=== PATIENT | female | born 1950 | race Caucasian/White ===

== ENCOUNTER → 2019-05-22 10:38 | Outpatient (CLI) | payer MEDICARE, SELFPAY ==
--- NOTE | 2019-05-22 11:32 | DI.RAD.S_ITS ---
PROCEDURE: XR KNEE LT 3V INDICATIONS: knee pain TECHNIQUE: 3 views of the knee were acquired. COMPARISON: None. FINDINGS: Bones: No fractures or dislocations. No suspicious bony lesions. There is [id number] tricompartmental knee joint degeneration. Soft tissues: Trace joint effusion. No suspicious soft tissue calcifications. IMPRESSION: Mild/moderate degenerative joint disease. Dictated by: Surya Talavera M.D. on 05/22/2019 at 13:05 Approved by: Surya Talavera M.D. on 05/22/2019 at 13:06
== END ==
PROVIDERS: PCP Hospitalist; Visit Provider Hospitalist
DX: M25.562 Pain in left knee (principal); M17.12 Unilateral primary osteoarthritis, left knee
CPT/HCPCS: 73562

== ENCOUNTER → 2019-06-23 08:07 | Outpatient (CLI) | payer MEDICARE, SELFPAY ==
[2019-06-23 09:12] LABS: Add Manual Diff / Slide Review NO; Basophils Absolute Auto 0 /uL (0-100); Basophils Percent Auto 0.4 % (0-2); Eosinophils Absolute Auto 100 /uL (0-450); Eosinophils Percent Auto 0.7 % (2-4); Hematocrit 41.5 % (36-46); Hemoglobin 13.7 g/dL (12.0-16.0); Lymphocytes Absolute Auto 2500 /uL (1100-4500); Lymphocytes Percent Auto 22.7 % (25-40); Mean Corpuscular HGB Conc 33.2 % (30-36); Mean Corpuscular Hemoglobin 30.4 PG (26-34); Mean Corpuscular Volume 91.8 fL (80-100); Monocytes Absolute Auto 600 /uL (0-900); Monocytes Percent Auto 5.2 % (3-14); Neutrophils Absolute Auto 7800 /uL (1500-7000); Platelet Count 230 X10^3/uL (150-400); Red Blood Cell Count 4.52 X10^6/uL (4.0-5.2); Red Cell Distribution Width 15.2 % (11.6-14.8)
[2019-06-23 09:31] LABS: Alanine Aminotransferase 21 IU/L (<35); Albumin 4.7 g/dL (3.5-5.0); Albumin Globulin Ratio 1.4 (1.0-2.8); Alkaline Phosphatase 85 U/L (38-126); Aspartate Aminotransferase 20 IU/L (14-36); BUN Creatinine Ratio 14.2 (6-22); Bilirubin Total 0.5 mg/dL (0.2-1.3); Blood Urea Nitrogen 17 mg/dL (7-17); Calcium 9.9 mg/dL (8.4-10.2); Carbon Dioxide 27 mmol/L (22-32); Chloride 104 mmol/L (98-107); Cholesterol 241 mg/dL (140-199); Estimated Glomerular Filt Rate 44.5 mL/min (>60); Globulin 3.4 g/dL (1.7-4.1); Glucose 111 mg/dL (80-110); HDL Cholesterol 54 mg/dL (40-60); HEMOLYSIS < 15 (0-50); LDL Cholesterol Calculated 156 mg/dL (<100); Potassium 4.4 mmol/L (3.4-5.1); Sodium 142 mmol/L (137-145); Total Protein 8.1 g/dL (6.3-8.2); Triglycerides 155 mg/dL (35-150)
[2019-06-23 09:58] LABS: Thyroid Stimulating Hormone 3.01 uIU/mL (0.47-4.68)
== END ==
PROVIDERS: PCP Family Medicine; Visit Provider Hospitalist
DX: E03.9 Hypothyroidism, unspecified (principal); Z87.39 Personal history of other diseases of the musculoskeletal system and connective tissue
CPT/HCPCS: 36415; 80053; 80061; 84443; 85025

== ENCOUNTER → 2019-06-26 17:52 | Outpatient (CLI) | payer MEDICARE, SELFPAY ==
--- NOTE | 2019-06-26 17:54 | DI.MRI.S_ITS ---
PROCEDURE: MR KNEE LT WO CON INDICATIONS: severe left knee pain TECHNIQUE: Noncontrast sagittal PD fast spin echo and T2 fast spin echo with fat saturation, sagittal 3-D FLASH with fat saturation; coronal T1 spin echo and PD fast spin echo with fat saturation, and axial PD fast spin echo with fat saturation through the knee. COMPARISON: None. FINDINGS: Image quality: Excellent. Menisci: The medial and lateral menisci demonstrate normal morphology and internal signal. The meniscal root ligaments appear intact. Cruciate ligaments: The anterior and posterior cruciate ligaments appear intact. Medial structures: The medial collateral ligament appears intact. The posterior oblique ligament, semimembranosus tendon insertions, oblique popliteal ligament, and meniscocapsular junction appear intact. Visualized portions of the pes anserinus tendons appear normal. No abnormal bursal fluid. Lateral structures: The lateral collateral ligament, long and short heads of the biceps femoris tendon appear intact. The popliteus tendon appears normal; the popliteofibular ligament appears intact. The posterosuperior and anteroinferior popliteomeniscal fascicles appear intact. The arcuate and fabellofibular ligaments appear intact, on either side of the lateral inferior geniculate artery. Iliotibial band appears normal. Anterior structures: The quadriceps and patellar tendons appear intact. Patellar alignment is normal. No femoral trochlear dysplasia or ventral trochlear prominence. No edema in the infrapatellar fat pad. Bones and cartilage: No bone marrow contusions or fractures. Low-grade tricompartmental osteoarthritis is seen more prominent in lateral femoral tibial compartment. 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 Joint space: There is small amount of joint fluid, no gross intra-articular loose body. A popliteal cyst is seen measures 1.3 x 2 x 2.9 cm in size. Normal appearing synovial plicae are incidentally noted. IMPRESSION: 1. No evidence of focal meniscal tear. Cruciate ligaments are intact. 2. Low-grade tricompartmental osteoarthritis with joint space narrowing more prominent in the lateral femoral tibial compartment. 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 Small amount of joint fluid and small popliteal cyst. 3. No fracture or dislocation. No gross marrow edema. Dictated by: Alberto Law M.D. on 06/27/2019 at 8:53 Approved by: Alberto Law M.D. on 06/27/2019 at 9:02
== END ==
PROVIDERS: PCP Family Medicine; Visit Provider Family Medicine
DX: M25.562 Pain in left knee (principal); M17.12 Unilateral primary osteoarthritis, left knee; M94.262 Chondromalacia, left knee; M71.22 Synovial cyst of popliteal space [Baker], left knee
CPT/HCPCS: 73721

== ENCOUNTER → 2019-07-24 11:45 | Outpatient (CLI) | payer MEDICARE, SELFPAY ==
--- NOTE | 2019-07-24 11:48 | DI.MG.S_ITS ---
BILATERAL DIGITAL SCREENING MAMMOGRAM 3D/2D WITH CAD: 07/24/2019 CLINICAL: Routine screening. Comparison is made to exams dated: 06/09/2015 mammogram, 12/12/2012 mammogram, and 01/03/2007 mammogram - [facility]. There are scattered fibroglandular elements in both breasts. Current study was also evaluated with a Computer Aided Detection (CAD) system. There is a round focal asymmetry in the left breast at 12 o'clock middle depth. No other significant masses, calcifications, or other findings are seen in either breast. IMPRESSION: INCOMPLETE: NEEDS ADDITIONAL IMAGING EVALUATION The round focal asymmetry in the left breast most likely is a cyst and is indeterminate. Additional views with possible ultrasound are recommended. This exam was interpreted at Station ID: [id number]. NOTE: For mammograms, a report in lay terms will be sent to the patient. Approximately 15% of breast malignancies will not be visualized mammographically. In the management of a palpable breast mass, a negative mammogram must not discourage biopsy of a clinically suspicious lesion. Electronically Signed By: Alondra jasso/duarte:07/25/2019 14:17:16 letter sent: Additional Imaging Needed ACR BI-RADS Category 0: Incomplete 3340F
== END ==
PROVIDERS: PCP Family Medicine; Visit Provider Family Medicine
DX: Z12.31 Encounter for screening mammogram for malignant neoplasm of breast (principal)
CPT/HCPCS: 77063; 77067

== ENCOUNTER → 2019-08-12 14:36 | Outpatient (CLI) | payer MEDICARE, SELFPAY ==
--- NOTE | 2019-08-12 14:39 | DI.US.S_ITS ---
ULTRASOUND OF LEFT BREAST AND AXILLA: 08/12/2019 CLINICAL: Abn mammo. Comparison is made to exams dated: 08/12/2019 mammogram, 07/24/2019 mammogram, 06/09/2015 mammogram, 12/12/2012 mammogram, 01/03/2007 mammogram, and 01/02/2006 mammogram - [facility]. Color flow and real-time ultrasound of the left breast axilla were performed. Argueta scale images of the real-time examination were reviewed. There is a 0.4 cm x 0.4 cm x 0.3 cm oval mass with a circumscribed margin in the left breast at 1 o'clock middle depth. This oval mass is hypoechoic. This correlates with mammography findings. Color flow imaging demonstrates that there is no vascularity present. No significant abnormalities were seen sonographically in the left axilla. IMPRESSION: SUSPICIOUS OF MALIGNANCY The 0.4 cm x 0.4 cm x 0.3 cm oval solid mass in the left breast is at a low suspicion for malignancy. An ultrasound guided biopsy is recommended. Findings and biopsy recommendations were discussed with the patient by Dr. Solomon during today's visit. This exam was interpreted at Station ID: [id number]. Electronically Signed By: Boris Garcia M.D. aty/:08/12/2019 16:21:25 letter sent: Biopsy Required Ultrasound BI-RADS: 4a Low suspicion for malignancy
--- NOTE | 2019-08-12 14:39 | DI.MG.S_ITS ---
UNILATERAL LEFT DIGITAL DIAGNOSTIC MAMMOGRAM 3D/2D WITH ADDITIONAL VIEWS: 08/12/2019 CLINICAL: Additional evaluation requested from prior study. Comparison is made to exams dated: 07/24/2019 mammogram, 06/09/2015 mammogram, and 12/12/2012 mammogram - [facility]. There are scattered fibroglandular elements in left breast. There is a 0.4 cm oval focal asymmetry in the left breast at 12 o'clock middle depth. This is seen in additional views. This is not significantly changed. No other significant masses or calcifications are seen in the breast. IMPRESSION: INCOMPLETE: NEEDS ADDITIONAL IMAGING EVALUATION The 0.4 cm oval focal asymmetry in the left breast most likely is a cyst but remains indeterminate. An ultrasound is recommended for further evaluation and is scheduled to immediately follow this study. This exam was interpreted at Station ID: [id number]. NOTE: For mammograms, a report in lay terms will be sent to the patient. Approximately 15% of breast malignancies will not be visualized mammographically. In the management of a palpable breast mass, a negative mammogram must not discourage biopsy of a clinically suspicious lesion. Electronically Signed By: Boris Garcia M.D. aty/:08/12/2019 15:18:32 ACR BI-RADS Category 0: Incomplete 3340F
== END ==
PROVIDERS: PCP Family Medicine; Visit Provider Family Medicine
DX: R92.8 Other abnormal and inconclusive findings on diagnostic imaging of breast (principal); N63.21 Unspecified lump in the left breast, upper outer quadrant
CPT/HCPCS: 76642; 77065; G0279

== ENCOUNTER → 2019-08-21 07:41 | Outpatient (CLI) | payer MEDICARE, SELFPAY ==
--- NOTE | 2019-08-21 | PATH_ITS ---
[facility] Accession Number: [id number] . 01 Material submitted: . breast - LEFT BREAST MASS 5:30 RETROAREOLAR . 01 Diagnosis: Left Breast Mass, 5:30 o'clock, Retroareolar, Biopsy: Fragments of cyst wall with apocrine metaplasia. Background fibrocystic change including focal usual ductal hyperplasia, columnar cell change, cystic duct dilation, and stromal fibrosis. Focal changes suggestive of fat necrosis and associated histiocytic inflammation. Negative for atypia, carcinoma in situ, and malignancy. Negative for calcifications (including calcium oxalate) in the tissue sections examined. [facility] 08/22/20192026 Local . 01 Comment: Clinical radiographic correlation is necessary. Deeper levels are examined. . 01 Electronically signed: Calvin Dudley MD, Pathologist NPI- [id number] . 01 Gross description: . Received one formalin-filled container, labeled with the patient's name and designated left breast mass 5:30 retroareolar. The specimen is received with a plastic filter in container, sample loose in container and consists of multiple yellow-casillas portions of tissue which range in size from 0.2 x 0.2 x 0.1 cm to 1.2 x 0.3 x 0.3 cm. The specimen is entirely submitted in one cassette. Collection date: 08/21/19. Collection time per container: 8:46. Total fixation time: Approximately 14 hours. ([id number]) /STEVE 08/22/2019220 Local . 01 Pathologist provided ICD-10: N63.0 . 01 CPT . 859687 Performed at: 01 [facility] [address] [place] [address] [address], [place], [place] [id number] MD Olvin Lamb MD Phone: [phone]
--- NOTE | 2019-08-21 | DI.MG.S_ITS ---
UNILATERAL LEFT DIGITAL DIAGNOSTIC MAMMOGRAM POST-NEEDLE BIOPSY: 08/21/2019 CLINICAL: Left breast mass. Comparison is made to exams dated: 08/12/2019 ultrasound, 08/12/2019 mammogram, and 07/24/2019 mammogram - [facility]. There are scattered fibroglandular elements in left breast. There is a marker clip in the appropriate position in the left breast at 12 o'clock anterior depth. This marker clip placement is at the biopsy site. IMPRESSION: POST PROCEDURE MAMMOGRAM FOR MARKER PLACEMENT There was a successful marker clip placement in the left breast anterior depth. This exam was interpreted at Station ID: [id number]. NOTE: For mammograms, a report in lay terms will be sent to the patient. Approximately 15% of breast malignancies will not be visualized mammographically. In the management of a palpable breast mass, a negative mammogram must not discourage biopsy of a clinically suspicious lesion. Electronically Signed By: Boris Garcia M.D. aty/:08/21/2019 23:32:21 ACR BI-RADS Category Post-procedure mammogram for marker placement
--- NOTE | 2019-08-21 07:43 | DI.US.S_ITS ---
ULTRASOUND GUIDED BIOPSY LEFT BREAST USING VACUUM DEVICE WITH MARKING DEVICE INSERTED AND POST MAMMOGRAPHIC IMAGIN08/21/2019 CLINICAL: Left breast mass. PATIENT CONSENT: Risks (minor bleeding, infection, vasovagal reaction and repeat procedure), benefits and alternatives were explained to the patient and written informed consent was obtained. Correlation is made to exams dated: 08/12/2019 ultrasound, 08/12/2019 mammogram, 07/24/2019 mammogram, 06/09/2015 mammogram, 12/12/2012 mammogram, and 01/03/2007 mammogram - [facility]. An ultrasound guided biopsy using real-time ultrasound was performed for the 0.4 cm x 0.4 cm x 0.3 cm oval mass located in the left breast retroareolar middle depth. This was described on the previous mammography and ultrasound reports. The skin was prepped in the usual manner. Local anesthetic was administered to the access site. A skin tasia was made in the breast. The abnormality was approached from the lateral aspect. A 13 gauge biopsy needle was placed adjacent to the abnormality under ultrasound guidance. Once the needle was documented to be in the correct location, four specimens were obtained using the Mammotome biopsy system. A clip was inserted into the biopsy cavity. A sterile dressing was applied to the access site. Post procedure mammographic imaging demonstrates the location device at the targeted area. The specimens were sent to the laboratory for pathological analysis. IMPRESSION: ULTRASOUND GUIDED BIOPSY BENIGN Ultrasound guided biopsy of the 0.4 cm x 0.4 cm x 0.3 cm mass in the left retroareolar breast middle depth was successful. Pathology indicates benign cyst wall with apocrine metaplasia (AM). Pathology results are concordant with imaging findings. Recommend return to screening mammogram in 12 months. This exam was interpreted at Station ID: [id number]. Boris colon,slc/:08/28/2019 10:23:35
== END ==
PROVIDERS: PCP Family Medicine; Visit Provider Family Medicine
DX: N60.02 Solitary cyst of left breast (principal); N60.82 Other benign mammary dysplasias of left breast; N60.32 Fibrosclerosis of left breast
CPT/HCPCS: 19083; 77065

== ENCOUNTER → 2020-09-30 12:22 | Outpatient (CLI) | payer MEDICARE, SELFPAY ==
[2020-09-30] MEDS: COVID-19 VACC, Ad26(JANSSEN)/PF 0.5 ML IM (12:45)
== END ==
PROVIDERS: PCP Family Medicine; Visit Provider Internal Medicine
DX: Z23 Encounter for immunization (principal)
CPT/HCPCS: 0031A; 91303

== ENCOUNTER → 2020-10-22 08:10 | Outpatient (CLI) | payer MEDICARE, SELFPAY ==
[2020-10-22 08:59] LABS: Add Manual Diff / Slide Review NO; Basophils Absolute Auto 0 /uL (0-100); Basophils Percent Auto 0.5 % (0-2); Eosinophils Absolute Auto 200 /uL (0-450); Hematocrit 40.2 % (36-46); Hemoglobin 13.1 g/dL (12.0-16.0); Lymphocytes Absolute Auto 2000 /uL (1100-4500); Lymphocytes Percent Auto 26.1 % (25-40); Mean Corpuscular HGB Conc 32.6 % (30-36); Mean Corpuscular Volume 92.1 fL (80-100); Monocytes Absolute Auto 400 /uL (0-900); Monocytes Percent Auto 5.6 % (3-14); Neutrophils Absolute Auto 5100 /uL (1500-7000); Neutrophils Percent Auto 65.8 % (50-75); Platelet Count 192 X10^3/uL (150-400); Red Blood Cell Count 4.37 X10^6/uL (4.0-5.2); Red Cell Distribution Width 14.3 % (11.6-14.8); White Blood Cell Count 7.7 X10^3/uL (4.5-11.0)
[2020-10-22 09:16] LABS: Alanine Aminotransferase 27 IU/L (<35); Albumin 4.6 g/dL (3.5-5.0); Albumin Globulin Ratio 1.4 (1.0-2.8); Alkaline Phosphatase 80 U/L (38-126); Aspartate Aminotransferase 28 IU/L (14-36); Bilirubin Total 0.2 mg/dL (0.2-1.3); Blood Urea Nitrogen 13 mg/dL (7-17); Calcium 9.9 mg/dL (8.4-10.2); Carbon Dioxide 26 mmol/L (22-32); Chloride 108 mmol/L (98-107); Cholesterol 220 mg/dL (140-199); Estimated Glomerular Filt Rate 50.2 mL/min (>60); Globulin 3.3 g/dL (1.7-4.1); Glucose 118 mg/dL (80-110); HDL Cholesterol 54 mg/dL (40-60); HEMOLYSIS 16 (0-50); LDL Cholesterol Calculated 136 mg/dL (<100); Potassium 4.4 mmol/L (3.4-5.1); Sodium 142 mmol/L (137-145); Total Protein 7.9 g/dL (6.3-8.2); Triglycerides 152 mg/dL (35-150)
[2020-10-22 09:34] LABS: Free T3, Triiodothyronine Free 3.49 pg/mL (2.77-5.27); Free T4, Direct Thyroxine 1.91 ng/dL (0.78-2.19)
[2020-10-22 09:47] LABS: Thyroid Stimulating Hormone 0.971 uIU/mL (0.47-4.68)
== END ==
PROVIDERS: PCP Family Medicine; Referring Provider Family Medicine; Visit Provider Family Medicine
DX: E03.9 Hypothyroidism, unspecified (principal); E03.8 Other specified hypothyroidism; E11.22 Type 2 diabetes mellitus with diabetic chronic kidney disease; E78.00 Pure hypercholesterolemia, unspecified; I10 Essential (primary) hypertension; I11.9 Hypertensive heart disease without heart failure
CPT/HCPCS: 36415; 80053; 80061; 84439; 84443; 84481; 85025